=== PATIENT | male | born 1940 | race Caucasian/White ===

== ENCOUNTER 2016-12-21 10:44 | Emergency (ER) | payer OTHER ==
[~2016-12-21] VITALS: Ht 175.3 cm; Wt 99.5 kg
[~2016-12-21 10:44] MED LIST: ACTOS30 MG PO; ACYCLOVIR400 MG PO; ALLOPURINOL300 MG PO; ALPHAGAN P100 DROP/5 BOTH EYES; AMLODIPINE BESYL5 MG PO; BETIMOL 0.100 DROP/5 BOTH EYES; BUMEX1 MG PO; CALCIUM 600 +1 EA13 PO; CALTRATE 600 +1 EAC1 PO; CRESTOR10 MG PO; CYANOCOBALAM1000 MCG PO; CYMBALTA60 MG PO; FISH OIL 1,0001 EAC7 PO; GABAPENTIN300 MG PO; GAS-X80 MG PO; GLIPIZIDE10 MG PO; GLUCOTROL10 MG PO; GLUCOTROL5 MG PO; LASIX20 MG PO; LORAZEPAM0.5 MG PO; MEGACE40 MG PO; MORPHINE SULFAT15 M1 PO; ONGLYZA2.5 MG PO; ONGLYZA5 MG PO; OXYCODONE HCL10 MG PO; RAMIPRIL10 MG PO; RANITIDINE HCL150 MG PO; SENNA PLUS TAB1 EACH PO; SULFAMETHOXAZO1 EAC5 PO; ULTRAM50 MG PO; VITAMIN D2000 INTUN PO; VITAMIN E400 UNIT PO
[2016-12-21 11:34] LABS: EOSINOPHIL (%) 5.5 % (0-5); EOSINOPHIL COUNT 0.4 K/uL (0-0.3); HEMATOCRIT 37.8 % (38.0-50.0); IMMATURE GRANULOCYTE (%) 0.4 % (0.0-0.7); INSTRUMENT ABS NEUTROPHIL CT 4.8 K/uL; MCH 28.6 PG (29.0-34.0); MCV 89.4 FL (86-99); MEAN PLAT.VOLUME 11.6 uM^3 (9.0-12.4); MONOCYTE (%) 16.6 % (3-12); MONOCYTE COUNT 1.2 K/uL (0-0.8); NEUTROPHIL (%) 63.5 % (45-76); NEUTROPHIL COUNT 4.8 K/uL (1.8-6.4); PLATELET COUNT 126 K/uL (156-360); RBC DIS.WIDTH-CV 13.2 % (11.8-14.6); RBC DIS.WIDTH-SD 43.2 % (39-53); RED BLOOD COUNT 4.23 M/uL (4.00-5.50); WHITE BLOOD COUNT 7.5 K/uL (4.1-10.2)
[2016-12-21 11:46] LABS: CHLORIDE 105 mEq/L (99-109); POTASSIUM 3.9 mEq/L (3.7-5.4); SODIUM 140 mEq/L (136-147)
[2016-12-21 11:48] LABS: GLUCOSE 211 mg/dL (70-99)
[2016-12-21 11:50] LABS: ANION GAP 6 MEQ/L (2-14); TOTAL BILIRUBIN 0.4 mg/dL (0.0-1.0)
[2016-12-21 11:52] LABS: ALKALINE PHOSPHATASE 59 IU/L (3-129); GFR ESTIMATE (CALCULATED) 45 mL/min/
[2016-12-21 11:53] LABS: UREA NITROGEN (BUN) 12 mg/dL (9-23)
[2016-12-21 11:55] LABS: CREATINE KINASE 123 IU/L (1-294); TOTAL CK 123 IU/L (1-294)
[2016-12-21 11:56] LABS: TROP-I INTERPRETATION NEGATIVE; TROPONIN-I 0.02 ng/mL (0.0-0.30)
[2016-12-21 12:01] LABS: CK-MB 2.5 ng/mL (0.0-4.9)
[2016-12-21] MEDS ORDERED: METHOCARBAMOL750 MG PO (12:43)
[2016-12-21 13:42] VITALS: BP 146/93
== END 2016-12-21 13:58 | disposition home or self-care (01) ==
LOC: EME 10:44
PROVIDERS: Emergency Medicine
DX: S22.20XA Unspecified fracture of sternum, initial encounter for closed fracture (principal); V49.40XA Driver injured in collision with unspecified motor vehicles in traffic accident, initial encounter; W22.10XA Striking against or struck by unspecified automobile airbag, initial encounter; E11.9 Type 2 diabetes mellitus without complications; E78.5 Hyperlipidemia, unspecified; Z85.79 Personal history of other malignant neoplasms of lymphoid, hematopoietic and related tissues; Z79.891 Long term (current) use of opiate analgesic
CPT/HCPCS: 80053; 82550; 82553; 84484; 85025; 93005; 99281; 99284

== ENCOUNTER 2018-03-09 06:34 | Inpatient (IN) | payer OTHER ==
[~2018-03-09] VITALS: Ht 170.2 cm; Wt 99.8 kg
[~2018-03-09 06:34] MED LIST changes: +METHOCARBAMOL750 MG PO
[2018-03-09 08:04] LABS: HEMATOCRIT 29.9 % (38.0-50.0); HEMOGLOBIN 9.8 G/DL (12.5-16.6); MCH 32.5 PG (29.0-34.0); MCHC 32.8 G/DL (30.0-36.0); PLATELET COUNT 57 K/uL (156-360); RBC DIS.WIDTH-CV 15.1 % (11.8-14.6); RBC DIS.WIDTH-SD 55.5 % (39-53); RED BLOOD COUNT 3.02 M/uL (4.00-5.50); WHITE BLOOD COUNT 4.5 K/uL (4.1-10.2)
[2018-03-09 08:12] LABS: ALBUMIN 3.3 g/dL (3.2-4.8)
[2018-03-09 08:13] LABS: CHLORIDE 101 mEq/L (99-109); POTASSIUM 4.6 mEq/L (3.7-5.4); SODIUM 135 mEq/L (136-147)
[2018-03-09 08:15] LABS: GLUCOSE 161 mg/dL (70-99); TOTAL PROTEIN 5.7 g/dL (6.4-8.3)
[2018-03-09 08:17] LABS: TOTAL BILIRUBIN 0.7 mg/dL (0.0-1.0)
[2018-03-09 08:18] LABS: ALKALINE PHOSPHATASE 116 IU/L (3-129)
[2018-03-09 08:19] LABS: CREATININE 1.4 mg/dL (0.6-1.3); GFR ESTIMATE (CALCULATED) 52 mL/min/ (58.99-99999)
[2018-03-09 08:20] LABS: AST (GOT) 27 IU/L (2-34); UREA NITROGEN (BUN) 20 mg/dL (9-23)
[2018-03-09 08:21] LABS: ALT (GPT) 29 IU/L (3-49)
[2018-03-09 08:22] LABS: LIPASE 23 U/L (1.0-51.0)
[2018-03-09 08:25] LABS: TROP-I INTERPRETATION NEGATIVE; TROPONIN-I 0.07 ng/mL (0.0-0.30)
[2018-03-09 08:50] LABS: BASOPHIL (%) 0.2 % (0-1); EOSINOPHIL (%) 0 % (0-5); IMMATURE GRANULOCYTE (%) 0.4 % (0.0-0.7); LYMPHOCYTE (%) 3.6 % (15-42); LYMPHOCYTE COUNT 0.2 K/uL (1.0-2.8); MONOCYTE (%) 6.9 % (3-12); MONOCYTE COUNT 0.3 K/uL (0-0.8); NEUTROPHIL (%) 88.9 % (45-76); PLAT.SUFFICIENCY DECREASED
[2018-03-09] MEDS ORDERED: POTASSIUM CHLO20 ME1 PO (15:49)
[2018-03-09] MEDS ORDERED: MORPHINE SULFAT30 M2 PO (15:51)
[2018-03-09] MEDS ORDERED: REVLIMID10 MG PO (15:53)
[2018-03-09] MEDS ORDERED: GLIPIZIDE10 MG PO (15:58)
[2018-03-09] MEDS ORDERED: ROSUVASTATIN CA10 MG PO (15:59)
[2018-03-09] MEDS ORDERED: DULOXETINE HCL30 MG PO (16:01)
[2018-03-09] MEDS ORDERED: CALCIUM 500 MG1 EACH PO ×2 (16:10→16:11)
[2018-03-09] MEDS ORDERED: DIGESTIVE ADVA1 EAC1 PO (16:12)
[2018-03-09] MEDS ORDERED: CYANOCOBALAM1000 MCG PO (16:13)
[2018-03-09] MEDS ORDERED: VITAMIN E400 UNIT PO (16:14)
[2018-03-09] MEDS ORDERED: MULTI-VITAMIN1 EAC4 PO (16:15)
[2018-03-09] MEDS ORDERED: BENTYL10 MG PO (16:20)
[2018-03-09 16:54] LABS: APPEARANCE CLEAR ((CLEAR)); BILIRUBIN NEGATIVE; BLOOD SMALL; COLOR YELLOW ((YELLOW)); GLUCOSE (STRIP) 150; KETONES 5; LEUKOCYTES NEGATIVE; NITRITE NEGATIVE; PROTEIN (STRIP) 30; SPECIFIC GRAVITY 1.018 (1.000-1.030); UROBILINOGEN 0.2 MG/DL (0.2-1.0)
[2018-03-09 16:58] LABS: BACTERIA NONE SEEN /HPF; CALCIUM OXALATE CRYSTALS 2+ /HPF; EPITHELIAL CELLS RARE /HPF; HYALINE CASTS 0-5 /LPF; MUCUS TRACE /LPF; RED BLOOD CELLS 15-20 /HPF (0-5); UCUL ADDED? NO; WHITE BLOOD CELLS 0-5 /HPF (0-5)
[2018-03-09 19:35] VITALS: BP 144/71
[2018-03-10 00:28] VITALS: BP 123/66
[2018-03-10 04:36] VITALS: BP 144/73
[2018-03-10 06:08] LABS: HEMATOCRIT 29.6 % (38.0-50.0); HEMOGLOBIN 9.8 G/DL (12.5-16.6); MCHC 33.1 G/DL (30.0-36.0); MCV 96.7 FL (86-99); PLATELET COUNT 55 K/uL (156-360); RBC DIS.WIDTH-CV 14.7 % (11.8-14.6); RBC DIS.WIDTH-SD 53.1 % (39-53); RED BLOOD COUNT 3.06 M/uL (4.00-5.50); WHITE BLOOD COUNT 4.9 K/uL (4.1-10.2)
[2018-03-10 06:32] LABS: CHLORIDE 102 MEQ/L (99-109); CREATININE 1.3 MG/DL (0.6-1.3); GFR ESTIMATE (CALCULATED) 57 mL/min/ (58.99-99999); POTASSIUM 4.4 MEQ/L (3.7-5.4); SODIUM 138 MEQ/L (136-147); UREA NITROGEN (BUN) 23 mg/dL (9-23)
[2018-03-10 06:33] LABS: GLUCOSE 248 mg/dL (70-99)
[2018-03-10 06:36] LABS: ABS NEUTROPHIL COUNT 4.6; ANISOCYTOSIS 1+; BAND NEUTROPHILS 17.2 % (0-8.0); EOSINOPHIL ABS CT 0; LYMPHOCYTES 2.6 % (15.0-45.0); MACROCYTES 1+; MONOCYTES 2.6 % (0-9.0); SEG.NEUTROPHILS 77.6 % (46.0-76.0)
[2018-03-10 07:25] VITALS: BP 138/74
[2018-03-10 11:35] VITALS: BP 125/63
[2018-03-10 15:54] VITALS: BP 151/72
[2018-03-10 20:16] VITALS: BP 143/67
[2018-03-11] VITALS (12 sets, daily range): BP systolic 116–154; BP diastolic 56–86
[2018-03-11 06:14] LABS: BASOPHIL (%) 0 % (0-1); EOSINOPHIL (%) 0 % (0-5); HEMATOCRIT 27.6 % (38.0-50.0); IMMATURE GRANULOCYTE (%) 0.3 % (0.0-0.7); LYMPHOCYTE (%) 6.1 % (15-42); LYMPHOCYTE COUNT 0.4 K/uL (1.0-2.8); MCH 31.6 PG (29.0-34.0); MCHC 32.6 G/DL (30.0-36.0); MCV 96.8 FL (86-99); MONOCYTE (%) 7.2 % (3-12); MONOCYTE COUNT 0.5 K/uL (0-0.8); NEUTROPHIL (%) 86.4 % (45-76); NEUTROPHIL COUNT 5.8 K/uL (1.8-6.4); PLATELET COUNT 57 K/uL (156-360); RBC DIS.WIDTH-CV 14.9 % (11.8-14.6); RBC DIS.WIDTH-SD 53.1 % (39-53); RED BLOOD COUNT 2.85 M/uL (4.00-5.50); WHITE BLOOD COUNT 6.7 K/uL (4.1-10.2)
[2018-03-11 06:35] LABS: CHLORIDE 104 MEQ/L (99-109); CREATININE 1.4 MG/DL (0.6-1.3); GFR ESTIMATE (CALCULATED) 52 mL/min/ (58.99-99999); GLUCOSE 166 mg/dL (70-99); POTASSIUM 3.8 MEQ/L (3.7-5.4); SODIUM 139 MEQ/L (136-147); UREA NITROGEN (BUN) 24 mg/dL (9-23)
[2018-03-12 05:51] LABS: BASOPHIL (%) 0 % (0-1); EOSINOPHIL (%) 0.2 % (0-5); HEMATOCRIT 24.9 % (38.0-50.0); HEMOGLOBIN 8.1 G/DL (12.5-16.6); IMMATURE GRANULOCYTE (%) 0.8 % (0.0-0.7); LYMPHOCYTE (%) 15.6 % (15-42); LYMPHOCYTE COUNT 0.8 K/uL (1.0-2.8); MCH 32.1 PG (29.0-34.0); MCHC 32.5 G/DL (30.0-36.0); MCV 98.8 FL (86-99); MONOCYTE COUNT 0.5 K/uL (0-0.8); NEUTROPHIL (%) 72.4 % (45-76); NEUTROPHIL COUNT 3.5 K/uL (1.8-6.4); RBC DIS.WIDTH-CV 15.3 % (11.8-14.6); RED BLOOD COUNT 2.52 M/uL (4.00-5.50); WHITE BLOOD COUNT 4.8 K/uL (4.1-10.2)
[2018-03-12 06:04] LABS: PLATELET COUNT 87 K/uL (156-360)
[2018-03-12 06:17] LABS: CHLORIDE 104 MEQ/L (99-109); CREATININE 1.4 MG/DL (0.6-1.3); GFR ESTIMATE (CALCULATED) 52 mL/min/ (58.99-99999); GLUCOSE 125 mg/dL (70-99); POTASSIUM 3.6 MEQ/L (3.7-5.4); SODIUM 141 MEQ/L (136-147); UREA NITROGEN (BUN) 22 mg/dL (9-23)
[2018-03-12 07:23] VITALS: BP 137/62
[2018-03-12 15:26] VITALS: BP 121/90
[2018-03-12 23:48] VITALS: BP 161/80
[2018-03-13 06:52] VITALS: BP 153/76
[2018-03-13] MEDS ORDERED: LEVAQUIN750 MG PO (12:52)
== END 2018-03-13 13:25 | disposition home or self-care (01) | DRG 871 ==
LOC: EME → EDBD 06:34 → 5SOUTH 11:34 → EDOF 11:34 → ENRESERV 11:36 → 5SOUTH 19:23
PROVIDERS: Internal Medicine; Nurse Practitioner Family; Physician Assistant; Student in an Organized Health Care Education/Training Program
PROC: 30233R1 Transfusion of Nonautologous Platelets into Peripheral Vein, Percutaneous Approach (ICD-10-PCS; principal; 2018-03-11)
DX: A41.9 Sepsis, unspecified organism (principal); J15.9 Unspecified bacterial pneumonia; R04.2 Hemoptysis; L03.115 Cellulitis of right lower limb; C90.00 Multiple myeloma not having achieved remission; R00.0 Tachycardia, unspecified; E86.0 Dehydration; I10 Essential (primary) hypertension; E78.5 Hyperlipidemia, unspecified; F41.9 Anxiety disorder, unspecified; E11.621 Type 2 diabetes mellitus with foot ulcer; I87.2 Venous insufficiency (chronic) (peripheral); L97.529 Non-pressure chronic ulcer of other part of left foot with unspecified severity; D64.9 Anemia, unspecified; N40.0 Benign prostatic hyperplasia without lower urinary tract symptoms; E11.319 Type 2 diabetes mellitus with unspecified diabetic retinopathy without macular edema; E11.40 Type 2 diabetes mellitus with diabetic neuropathy, unspecified; D69.59 Other secondary thrombocytopenia; T45.1X5A Adverse effect of antineoplastic and immunosuppressive drugs, initial encounter; G89.29 Other chronic pain
CPT/HCPCS: 70450; 71046; 71250; 73630; 74176; 80048; 80053; 80202; 81003; 82948; 83605; 83690; 84145 90; 84484; 85025; 86850; 86900; 86901; 87040; 87070; 87205; 87449; 87493; 87506; 87641; 93005; 93970; 94640; 94640 76; 94799; 99202; 99281; 99285; J0696; J1644; J1815; J2405; J2543; J2920; J3370; J7030; J7050; P9035